=== PATIENT | female | born 1985 | race Asian ===

== ENCOUNTER 2024-05-22 14:13 | Outpatient (CLI) | payer OTHER, SELFPAY ==
--- OUTSIDE RECORDS SUMMARY | 2024-05-22 14:15 | XMS_ITS | Clinical Summary ---
Author Organization [facility] Address [place], [place] [address] Care Team Providers Care Near East Archeology Professor Name Role Phone Randy Barriga Primary Care Provider Oseas gramajo Allergies No known active allergies Medications Medication Sig Dispensed Refills Start Date End Date Status .5, 28, 1.5 mg-30 mcg (21)/75 mg (7) tablet 02/17/2021 Act jose enrique Active Problems Problem Noted Date Diagnosed Date ADD (attention deficit disorder) 10/23/2020 Insomnia, idiopathic 10/23/2020 Immunizations Name Administration Dates Next Due AMB Influenza, IIV4 PF (=>6 mos Flulaval,Fluzone Fluarix)(Flu Clinic Only) 06/02/2020 COVID-19 vaccine (Cori-J&J) PF, MDV Influenza, IIV3 (Age >=3 years) 05/12/2011 Influenza, IIV4 05/08/2019 Tdap 05/08/2019 Family History Medical History Relation Name Comments Diabetes Father Unknown Other adopted Relation Name Status Comments Father Alive Other Social History Tobacco Use Types Packs/Day Years Used Date Smoking Tobacco: Never Smokeless Tobacco: Never Comments:05/08/19 Alcohol Use Standard Drinks/Week Comments Yes 0 (1 standard drink = 0.6 oz pur e alcohol) PHQ-2 Answer Date Recorded PHQ-2 TOTAL SCORE 0 10/23/2020 Social Connections Answer Date Recorded Frequency of Communication with Friends and Fami ly 0 11/04/2022 Financial Resource Strain Answer Date R ecorded Difficulty of Paying Living Expenses 3 11/04/2022 Difficulty of Paying Living Expenses Not on file 11/04/2022 Food Insecurity Answer Date Recorded Worried About Running Out of Food in the Last Ye ar 1 11/04/2022 Transportation Needs Answer Date Record ed Lack of Transportation (Medical) 1 11/04/2022 Housing Stability Answer Date Recorded Unable to Pay for Housing in the Last Year 1 11/04/2022 Sex and Gender Information Value Date Recorded Sex Assigned at Not on file Gender Identity Not on file Sexual Orientation Not on file Obstetrics History Last Filed Vital Signs Vital Sign Reading Time Taken Comments Blood Pressure 103/76 05/04/2021 3:53 PM CDT Pulse 62 05/04/2021 3:53 PM CDT Temperature 37 ??C (98.6 ??F) 05/04/2021 3:53 PM CDT Respiratory Rate 16 02/20/2021 8:15 AM CDT Oxygen Saturation 100% 05/04/2021 3:53 PM CDT Inhaled Oxygen Concentration - - Weight 54.8 kg (120 lb 12.8 oz) 10/23/2020 7:55 AM CDT Height 157 cm (5' 1.81) 10/23/2020 7:55 AM CDT Body Mass Index 22.23 10/23/2020 7:55 AM CDT Plan of Treatment Health Maintenance Due Date Last Done Comments HIV for age 15-65 2001 Hepatitis C screening for age 18-79 2004 BMI (ht and wt on same day) for age 18+ 10/23/2021 10/23/2020, 08/21/2019, 05/08/2019, Additional history exists Depression screening for age 12+ 10/23/2021 10/23/2020, 05/08/2019 Pap test for age 21-65 05/07/2022 9 ([facility] COVID-19 vaccine series ( season) 2024 10/04/2020 Influenza for age 9-49 03/11/2024 0, 05/08/2019, 05/12/2011 Tetanus booster 05/08/2029 05/08/2019 Tdap Completed 05/08/2019 Pneumococcal series for age 6-64 Aged Out No longer eligible based on patient's age to complete this topic Care Teams Near East Archeology Professor Relationship Specialty Start Date End Date Randy Barriga MBBS PCP - General Family Practice 05/08/19
--- OUTSIDE RECORDS SUMMARY | 2024-05-22 14:15 | XMS_ITS | Clinical Summary ---
Author Organization [facility] Address [address] [address] Care Team Providers Care Touch Up Painter Name Role Phone No Primary/Referring, Phy Primary Care Provider Unavailable Source Comments You are receiving this document as you are listed as the primary care provider,follow-up provider, or the patient has been referred to you for consultation.This is in compliance with the Medicare and[facility] EHR Incentive Program,which states Providers who transition their patient to another setting of careor provider of care or refers their patient to another provider of care shouldprovide summary care record for each transition of care or referral. [facility] Allergies No known active allergies Medications Medication Sig Dispensed Refills Start Date End Date Status methylphenidate (CONCERTA) 36 MG controlled release tabletIndications:Abs cess of earlobe Take 36 mg by mouth daily. Active Norethin Peña-Eth Estrad-FE ( OR)Indications:Absces s of earlobe Active sumatriptan (AKA IMITREX) 50 MG tabletIndications:Dustin nahun 1 tab at onset of headache. May repeat once after 2 hrs if headache recurs. 9 Tab 98 07/12/2013 Active Social History Tobacco Use Types Packs/Day Years Used Date Smoking Tobacco: Never Alcohol Use Standard Drinks/Week Comments Yes 0.8 (1 standard drink = 0.6 oz p ure alcohol) Sex and Gender Information Value Date Recorded Sex Assigned at Not on file Gender Identity Not on file Sexual Orientation Not on file Last Filed Vital Signs Vital Sign Reading Time Taken Comments Blood Pressure 96/71 07/18/2013 8:46 AM COLLEGE SCOUTING COORDINATOR Pulse 71 07/18/2013 8:46 AM COLLEGE SCOUTING COORDINATOR Temperature 36.8 ??C (98.2 ??F) 07/18/2013 8:46 AM CS T Respiratory Rate - - Oxygen Saturation 99% 07/18/2013 8:46 AM COLLEGE SCOUTING COORDINATOR Inhaled Oxygen Concentration - - Weight 52.2 kg (115 lb) 07/18/2013 8:46 AM COLLEGE SCOUTING COORDINATOR Height 152.4 cm (5') 07/18/2013 8:46 AM COLLEGE SCOUTING COORDINATOR Body Mass Index 22.46 07/18/2013 8:46 AM COLLEGE SCOUTING COORDINATOR Plan of Treatment Health Maintenance Due Date Last Done Comments Cervical Cancer Screening Due 1986 Hep C Screening (Preventive Services) 1986 HIV Screening (Preventive Services) 2002 Adult Preventive Visit 2004 HepB (1) 2005 COVID-19 Vaccine (2 - 2023-2 5 season) 2024 10/04/2020 Influenza (#1) 2024 06/02/2020, 05/08/2019, 05/12/2011 DTaP/Tdap/Td (2 - Tdap) 05/08/2029 05/08/2019 Zoster/Shingles (1 of 2) 2036 HPV Vaccine Aged Out No longer eligi ble based on patient's age to complete this topic HepA Aged Out No longer eligi ble based on patient's age to complete this topic Hib Aged Out No longer eligi ble based on patient's age to complete this topic IPV (Polio) Aged Out No longer eligi ble based on patient's age to complete this topic RSV Aged Out No longer eligi ble based on patient's age to complete this topic MCV4 Aged Out No longer eligi ble based on patient's age to complete this topic Pneumococcal Aged Out No longer eligi ble based on patient's age to complete this topic Care Teams Touch Up Painter Relationship Specialty Start Date End Date No Primary/Referring, Phy PCP - General 07/12/13
--- OUTSIDE RECORDS SUMMARY | 2024-05-22 14:16 | XMS_ITS | Clinical Summary ---
Author Organization [facility] Address [address] [place] [id number] Care Team Providers Care Tech Ed Teacher Name Role Phone No Ref-Primary, Physician Primary Care Provider Allergies No known active allergies Medications Norethin Peña-Eth Estrad-FE ( PO) Take 1 tablet by mouth daily Active Active Problems Problem Noted Date Diagnosed Date ADD (attention deficit disorder) Social History Tobacco Use Types Packs/Day Years Used Date Smoking Tobacco: Never Smokeless Tobacco: Never Alcohol Use Standard Drinks/Week Comments Yes 0 (1 standard drink = 0.6 oz pur e alcohol) maybe once a week one glass PHQ-2 Answer Date Recorded PHQ-2 Score 0 03/08/2018 Adolescent Education Answer Date Record ed Getting School Help Needed Not on file 04/01 Comments No Sex and Gender Information Value Date Recorded Sex Assigned at Not on file Legal Sex Female 9:06 AM CENTRAL SERVICE SUPPLY DISTRIBUTOR Gender Identity Not on file Sexual Orientation Not on file Last Filed Vital Signs Vital Sign Reading Time Taken Comments Blood Pressure 98/62 03/08/2018 2:54 PM CDT Pulse 73 03/08/2018 2:54 PM CDT Temperature 37 ??C (98.6 ??F) 03/08/2018 2:54 PM CDT Respiratory Rate - - Oxygen Saturation 100% 03/08/2018 2:54 PM CDT Inhaled Oxygen Concentration - - Weight 51.7 kg (114 lb) 03/08/2018 2:54 PM CDT Height 152.4 cm (5') 03/08/2018 2:54 PM CDT Body Mass Index 22.26 03/08/2018 2:54 PM CDT Plan of Treatment Health Maintenance Due Date Last Done Comments ADVANCE CARE PLANNING 1986 ANNUAL REVIEW OF HM ORDERS 1986 HEPATITIS B IMMUNIZATION (1 of 3 - 19+ 3-dose series) 2005 DTAP/TDAP/TD IMMUNIZATION (1 - Tdap) 11/18/2011 GLUCOSE 08/19/2018 08/19/2015 YEARLY PREVENTIVE VISIT 04/05/2023 04/05/20 22, 04/02/2021, 03/08/2018 PHQ-2 (once per calendar year) 2023 03/08/2018 COVID-19 Vaccine ( - 2023- season) 2024 INFLUENZA VACCINE (#1) 2024 05/12/2011 HPV TEST 04/05/2027 04/05/2022, 03/12, 04/02/2021, Additional history exists PAP 04/05/2027 04/05/2022, 03/12, 04/05/2022, Additional history exists RSV VACCINE (1 - 1-dose 75+ series) 2061 HEPATITIS C SCREENING Completed 10/06/2022, 022 HIV SCREENING Completed 05/25/2023, 09/09, 04/05/2022, Additional history exists HPV IMMUNIZATION Aged Out No longer e ligible based on patient's age to complete this topic MENINGITIS IMMUNIZATION Aged Out No l onger eligible based on patient's age to complete this topic Pneumococcal Vaccine: Pediatrics (0 to 5 Years) and At-Risk Patients (6 to 64 Years) Aged Out No longer eligible based on patient's age to complete this topic RSV MONOCLONAL ANTIBODY Aged Out No l onger eligible based on patient's age to complete this topic Procedures Procedure Name Priority Date/Time Associated Diagnosis Comments HIV ANTIGEN ANTIBODY COMBO Routine 05/25/2023 9:24 AM CENTRAL SERVICE SUPPLY DISTRIBUTOR Encounter for screening for human immunodeficiency virus (HIV) HEPATITIS C ANTIBODY Routine 10/06/2022 4:25 PM CDT Encounter for screening for other viral diseases [ICD-10-CM] GYNECOLOGIC CYTOLOGY Routine 04/05/2022 9:08 AM CDT Encounter for screening for malignant neoplasm of cervix HPV HIGH RISK TYPES DNA CERVICAL Routine 04/05/2022 9:08 AM CDT Encounter for screening for malignant neoplasm of cervix COMPREHENSIVE METABOLIC PANEL Routine 08/19/2015 10:02 AM CENTRAL SERVICE SUPPLY DISTRIBUTOR Abdominal pain, generalized from Last 3 Months or Most Recently Relevant to Health Maintenance Results * HIV Antigen Antibody Combo [place] (05/25/2023 9:24 AM CENTRAL SERVICE SUPPLY DISTRIBUTOR) HIV Antigen Antibody Combo Nonreactive Nonreactive 05/26/2023 7:58 AM CENTRAL SERVICE SUPPLY DISTRIBUTOR [facility] DO Comment:HIV-1 p24 Ag & HIV-1 /HIV-2 Ab Not Detected Blood BLOOD SPECIMEN / Unknown Client Draw / Unknown 05/25/2023 9:24 AM CENTRAL SERVICE SUPPLY DISTRIBUTOR 05/25/2023 2:16 PM CENTRAL SERVICE SUPPLY DISTRIBUTOR Evy Blancas MD LAB - BLOOD ORDERABLES Final Result [facility]ENDO [facility]/Prot/Endo [address] [facility] [address] [facility] [address], [address] [phone] * Hepatitis C antibody (10/06/2022 4:25 PM CDT) Hepatitis C Antibody Nonreactive Nonreactive 10/07/2022 9:07 AM CDT [facility] DO Blood BLOOD SPECIMEN / Unknown Client Draw / Unknown 10/06/2022 4:25 PM CDT 10/06/2022 7:20 PM CDT Narrative [facility] - 10/07/2022 9:07 AM CDT Assay performance characteristics have not been established for newborns, infants, and children. us Donna Jackson CNM LAB - BLOOD ORDERABLES Final Result [facility]ENDO Specialty Core/Prot/Endo [address] [facility] [address] [facility] [address], [address] [phone] * Gynecologic Cytology (PAP) (04/05/2022 9:08 AM CDT) Interpretation Negative for Intraepithelial Lesion or Malignancy (NILM) 04/08/2022 10:53 AM CDT [facility] Comment Papanicolaou Test Limitations: Cervical cytology is a screening test with limited sensitivity, and regular screening is critical for cancer prevention. Pap tests are primarily effective for the diagnosis/prevent ion of squamous cell carcinoma, not adenocarcinoma or other cancers. 04/08/2022 10:53 AM CDT [facility] Specimen Adequacy Satisfactory for evaluation, endocervical/ojeda sformation zone component absent 04/08/2022 10:53 AM CDT [facility] Clinical Information none 04/08/2022 10:53 AM CDT [facility] LMP/Menopause Date 02/08/2022 04/08/2022 10:53 AM CDT [facility] Reflex Testing Yes regardless of result 04/08/2022 10:53 AM CDT [facility] Previous Abnormal? 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 04/08/2022 10:53 AM CDT [facility] Performing Labs The technical component of this testing was completed at [facility] 04/08/2022 10:53 AM CDT [facility] Brushing ENDOCERVICAL STRUCTURE / Unknown 04/05/2022 9:08 AM CDT 04/06/2022 9:27 AM CDT us Maritza Alanis MD LAB - DEANNA AP Final R esult [facility] [address] [facility] [address] Building, [address] [place] [address], [place] [phone] * HPV High Risk Types DNA Cervical (04/05/2022 9:08 AM CDT) Other HR HPV Negative Negative 04/12/2022 12:53 PM CDT [facility] HPV16 DNA Negative Negative 04/12/2022 12:53 PM CDT [facility] HPV18 DNA Negative Negative 04/12/2022 12:53 PM CDT [facility] FINAL DIAGNOSIS This patient's sample is negative for HPV DNA. This test was developed and its performance characteristics determined by the [facility], Molecular Diagnostics Laboratory. It has not been cleared or approved by the FDA. The laboratory is regulated under CLIA as qualified to perform high-complexity testing. This test is used for clinical purposes. It should not be regarded as investigational or for research. METHODOLOGY: The Geronimo Kelsey 4800 system uses automated extraction, simultaneous amplification of HPV (L1 region) and beta-globin, followed by real time detection of fluorescent labeled HPV and beta globin using specific oligonucleotide probes. The test specifically identifies types HPV 16 DNA and HPV 18 DNA while concurrently detecting the rest of the high risk types (31, 33, 35, 39, 45, 51, 52, 56, 58, 59, 66 or 68). COMMENTS: This test is not intended for use as a screening device for woman under age 30 with normal cervical cytology. Results should be correlated with cytologic and histologic findings. Close clinical followup is recommended. 04/12/2022 12:53 PM CDT [facility] Brushing ENDOCERVICAL STRUCTURE / Unknown Non-blood Collection / Unknown 04/05/2022 9:08 AM CDT 04/09/2022 8:16 AM CDT us Maritza Alanis MD LAB - BLOOD ORDERABLES Final Result [facility] Molecular Diagnostics [address] [facility], [address] [place] [phone], [facility] [phone] * (ABNORMAL) Comprehensive metabolic panel (BMP + Alb, Alk Phos, ALT, AST, Total. Bili, TP) (08/19/2015 10:02 AM CENTRAL SERVICE SUPPLY DISTRIBUTOR) Sodium 137 133 - 144 mmol/L [facility] Potassium 4.1 3.4 - 5.3 mmol/L [facility] Chloride 106 94 - 109 mmol/L [facility] Carbon Dioxide 25 20 - 32 mmol/L [facility] Anion Gap 6 3 - 14 mmol/L [facility] Glucose 95 70 - 99 mg/dL [facility] Urea Nitrogen 25 7 - 30 mg/dL [facility] Creatinine 0.82 0.52 - 1.04 mg/dL [facility] GFR Estimate 83 >60 mL/min/1. 7m2 [facility] Comment:Non GFR Calc GFR Estimate If Black >90 GFR Calc >60 mL/min/1. 7m2 [facility] Calcium 8.4(L) 8.5 - 10.1 mg/dL [facility] Bilirubin Total 0.7 0.2 - 1.3 mg/dL [facility] Albumin 4.0 3.4 - 5.0 g/dL [facility] Protein Total 7.1 6.8 - 8.8 g/dL [facility] Alkaline Phosphatase 46 40 - 150 U/L [facility] ALT 21 0 - 50 U/L [facility] AST 13 0 - 45 U/L [facility] Blood specimen (specimen) 08/19/2015 10:02 AM CENTRAL SERVICE SUPPLY DISTRIBUTOR 08/19/2015 10:07 AM CENTRAL SERVICE SUPPLY DISTRIBUTOR us Joseph Kovacs MD LAB - BLOOD ORDERABLES Final Res ult [facility] [address] [place] [address] from Last 3 Months or Most Recently Relevant to Health Maintenance Insurance [facility] Care Teams Tech Ed Teacher Relationship Specialty Start Date End Date No Ref-Primary, Physician PCP - General 03/08/18
--- OUTSIDE RECORDS SUMMARY | 2024-05-22 14:16 | XMS_ITS | Referral Summary ---
Author Organization [facility] Address [address] [place] [address] Care Team Providers Care Umbrella Tipper Machine Name Role Phone No Ref-Primary, Physician Primary [...] on file Legal Sex Female 9:06 AM GENERATOR MECHANIC Gender Identity Not on file Sexual Orientation [...] 03/08/2018 2:54 PM CDT Plan of Treatment Not on file Procedures Procedure Name Priority Date/Time Associated Diagnosis Comments HIV ANTIGEN ANTIBODY COMBO Routine 05/25/2023 9:24 AM GENERATOR MECHANIC Encounter for screening for human immunodeficiency virus [...] COMPREHENSIVE METABOLIC PANEL Routine 08/19/2015 10:02 AM GENERATOR MECHANIC Abdominal pain, generalized from Last 3 Months or Most Recently Relevant to Health Maintenance Results * HIV Antigen Antibody Combo [place] (05/25/2023 9:24 AM GENERATOR MECHANIC) HIV Antigen Antibody Combo Nonreactive Nonreactive 05/26/2023 7:58 AM GENERATOR MECHANIC [facility] DO Comment:HIV-1 p24 Ag & HIV-1 /HIV-2 Ab Not Detected Blood BLOOD SPECIMEN / Unknown Client Draw / Unknown 05/25/2023 9:24 AM GENERATOR MECHANIC 05/25/2023 2:16 PM GENERATOR MECHANIC us Evy Blancas MD LAB - BLOOD ORDERABLES Final Result [facility] Core/Prot/Endo [address] [facility] [address] Building, [address] [place] [address] * Hepatitis C antibody (10/06/2022 4:25 PM CDT) Hepatitis C Antibody Nonreactive Nonreactive 10/07/2022 9:07 AM CDT [facility] DO Blood BLOOD SPECIMEN / Unknown Client Draw / Unknown 10/06/2022 4:25 PM CDT 10/06/2022 7:20 PM CDT Narrative SPECIALTY CORE/PROT/ENDO - 10/07/2022 9:07 AM CDT Assay performance characteristics have not been established for newborns, infants, and children. Donna Jackson CN LAB - BLOOD ORDERABLES Final Result [facility]/Prot/Endo [address] [facility] [address] [facility], [address] [phone] * Gynecologic Cytology (PAP) (04/05/2022 9:08 AM [...] component of this testing was completed at [facility] 04/08/2022 10:53 AM CDT [facility] Brushing ENDOCERVICAL STRUCTURE / Unknown 04/05/2022 9:08 AM CDT 04/06/2022 9:27 AM CDT us Maritza Alanis MD LAB - BEAKER AP Final R esult [facility] Specialty Lab [address] [facility] [address], [address] [place] [address], [facility] [phone] * HPV High Risk Types DNA Cervical [...] MD LAB - BLOOD ORDERABLES Final Result [facility] [address], [address] [place] [address], [facility] [phone] * (ABNORMAL) Comprehensive metabolic panel (BMP + Alb, Alk Phos, ALT, AST, Total. Bili, TP) (08/19/2015 10:02 AM GENERATOR MECHANIC) Sodium 137 133 - 144 mmol/L [facility] Potassium 4.1 3.4 - 5.3 mmol/L [facility] Chloride 106 94 - 109 mmol/L [facility] Carbon Dioxide 25 20 - 32 mmol/L [facility] Anion Gap 6 3 - 14 mmol/L [facility] Glucose 95 70 - 99 mg/dL [facility] Urea Nitrogen 25 7 - 30 mg/dL [facility] Creatinine 0.82 0.52 - 1.04 mg/dL [facility] GFR Estimate 83 >60 mL/min/1. 7m2 [facility] Comment:Non GFR Calc GFR Estimate If Black >90 GFR Calc >60 mL/min/1. 7m2 [facility] Calcium 8.4(L) 8.5 - 10.1 mg/dL [facility] Bilirubin Total 0.7 0.2 - 1.3 mg/dL [facility] Albumin 4.0 3.4 - 5.0 g/dL [facility] Protein Total 7.1 6.8 - 8.8 g/dL [facility] Alkaline Phosphatase 46 40 - 150 U/L [facility] ALT 21 0 - 50 U/L [facility] AST 13 0 - 45 U/L [facility] Blood specimen (specimen) 08/19/2015 10:02 AM GENERATOR MECHANIC 08/19/2015 10:07 AM GENERATOR MECHANIC us Joseph Kovacs MD LAB - BLOOD ORDERABLES Final Res ult [facility] [address] [place] [address] from Last 3 Months or Most Recently Relevant to Health Maintenance Insurance [facility] Care Teams Umbrella Tipper Machine Relationship Specialty Start Date End Date No Ref-Primary, Physician PCP - General 03/08/18
[2024-05-25 02:39] LABS: HPV Source Cervix; HPV, High Risk by TMA Detected
[2024-05-25 14:45] LABS: HPV Genotype 16 by TMA Not Detected; HPV Genotype 18/45 by TMA Not Detected; HPVG Source Cervix
== END 2024-05-22 14:14 | disposition home or self-care (01) ==
PROVIDERS: Visit Provider Obstetrics & Gynecology
DX: Z01.419 Encounter for gynecological examination (general) (routine) without abnormal findings (principal); D64.9 Anemia, unspecified; Z12.4 Encounter for screening for malignant neoplasm of cervix
CPT/HCPCS: 80053; 80061; 83540; 83550; 84443; 87624; 87625; 88141; 88142